=== PATIENT | female | born 1975 | race Caucasian/White ===

== ENCOUNTER 2023-04-20 23:19 | Emergency (ER) | payer OTHER ==
[~2023-04-20] VITALS: Ht 162.6 cm; Wt 92.1 kg
[2023-04-20 23:50] VITALS: BP 117/75
== END 2023-04-21 00:20 | disposition home or self-care (01) ==
LOC: ER 23:19
DX: S61.512A Laceration without foreign body of left wrist, initial encounter (principal); S80.211A Abrasion, right knee, initial encounter; Z23 Encounter for immunization; W01.198A Fall on same level from slipping, tripping and stumbling with subsequent striking against other object, initial encounter
CPT/HCPCS: 90471; 90714; 90715; 99283-25